=== PATIENT | female | born 1990 | race Caucasian/White ===

== ENCOUNTER 2017-01-17 14:28 | Emergency (ER) | payer SELFPAY ==
[2017-01-17 14:37] VITALS: BP 133/82
[2017-01-17 16:02] LABS: Basophils % (Auto) 0.2 % (0.0-1.8); Eosinophils % (Auto) 1.1 % (0.0-4.3); Hematocrit 39.3 % (30.3-42.9); Hemoglobin 13.4 gm/dl (10.1-14.3); Mean Corpuscular HGB Conc 34 % (30-34); Mean Corpuscular Hemoglobin 27 pg (28-32); Mean Corpuscular Volume 79 fl (79-97); Platelet Count 163 K/mm3 (140-440); Red Blood Count 4.96 M/mm3 (3.65-5.03); Red Cell Distribution Width 15.8 % (13.2-15.2); White Blood Count 5.8 K/mm3 (4.5-11.0)
[2017-01-17 17:00] LABS: Bacteria,Urine 1+ /HPF (Negative); Bilirubin,Urine NEG (Negative); Blood,Urine LG (Negative); Ketones,Urine NEG (Negative); Leukocyte Esterase,Urine LG (Negative); Mucus,Urine FEW /HPF; Nitrite,Urine POS (Negative); Protein,Urine <15 mg/dL mg/dL (Negative); Urobilinogen,Urine < 2.0 mg/dL (<2.0)
--- NOTE | 2017-01-17 22:16 | Emergency Department Report ---
HPI - General Chief Complaint: Vaginal Bleeding Time Seen by Provider: 01/17/17 21:52 - HPI HPI: Room 36 The patient is a 26-year-old female presenting with a chief complaint of hepatitis C, HIV exposure, dyspareunia and vaginal bleeding and concern for movement of IUD. 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 The patient states she was instructed to receive hepatitis C and HIV testing each month for 1 year. The patient states her tests have been negative through October 2016. The patient states she has since lost her medical insurance and has come to the emergency department for these tests to be performed. The patient states she also mention in passing and she began having vaginal bleeding since giving in August 2016 and she is also concerned that her IUD has moved. Location: [See above] Duration: [See above] Quality: [See above] Severity: [See above] Modifying factors: [see above] Context: [see above] Mode of transportation: [not driving] ED Past Medical Hx - Past Medical History Hx Sickle Cell Disease: Yes (sickle cell trait) - Surgical History Past Surgical History?: No - Family History Family history: no significant - Social History Smoking Status: Never Smoker Substance Use Type: None - Medications Home Medications: Home Medications Medication Instructions Recorded Confirmed Last Taken Type Ibuprofen [Motrin 600 MG tab] 600 mg PO Q8H PRN #30 tablet 09/07/16 Unknown Rx Multivitamin with Iron 1 each PO DAILY #30 tablet 09/07/16 Unknown Rx [Multivitamins with Iron] oxyCODONE /ACETAMINOPHEN [Percocet 1 tab PO Q6HR PRN #30 tablet 09/07/16 Unknown Rx 5/325] ED Review of Systems ROS: Stated complaint: VAGINAL PAIN, HIV TESTING NEEDLE STICK Other details as noted in HPI Comment: All other systems reviewed and negative Constitutional: denies: chills, fever Eyes: denies: eye pain, eye discharge, vision change ENT: denies: ear pain, throat pain Respiratory: denies: cough, shortness of breath, wheezing Cardiovascular: denies: chest pain, palpitations Endocrine: no symptoms reported Gastrointestinal: denies: abdominal pain, nausea, diarrhea Genitourinary: abnormal menses, dyspareunia Musculoskeletal: denies: back pain, joint swelling, arthralgia Skin: denies: rash, lesions Neurological: denies: headache, weakness, paresthesias Psychiatric: denies: anxiety, depression Hematological/Lymphatic: denies: easy bleeding, easy bruising Physical Exam - Physical Exam Vital Signs: Vital Signs 01/17/17 14:34 Temperature 99.2 F Pulse Rate 88 Respiratory 16 Rate Blood Pressure 133/82 O2 Sat by Pulse 99 Oximetry Physical Exam: GENERAL: The patient is well-developed well-nourished female sitting on chair not appearing to be in acute distress The rest of physical exam has been deferred as patient no longer wishes to be evaluated for her other symptoms outside of HIV/hepatitis C testing ED Course Vital Signs 01/17/17 14:34 Temperature 99.2 F Pulse Rate 88 Respiratory 16 Rate Blood Pressure 133/82 O2 Sat by Pulse 99 Oximetry ED Medical Decision Making - Lab Data Result diagrams: 01/17/17 15:20 Laboratory Tests 01/17/17 01/17/17 01/17/17 15:20 15:20 15:22 WBC 5.8 RBC 4.96 Hgb 13.4 Hct 39.3 MCV 79 MCH 27 L MCHC 34 RDW 15.8 H Plt Count 163 Lymph % (Auto) 39.3 H [place] % (Auto) 6.8 Eos % (Auto) 1.1 Baso % (Auto) 0.2 Lymph # 2.3 [place] # 0.4 Eos # 0.1 Baso # 0.0 Seg Neutrophils % 52.6 Seg Neutrophils # 3.0 HCG, Quant < 2 Urine Color Urine Turbidity Urine pH Ur Specific [place] Urine Protein Urine Glucose (UA) Urine Ketones Urine Blood Urine Nitrite Urine Bilirubin Urine Urobilinogen Ur Leukocyte Esterase Urine WBC (Auto) Urine RBC (Auto) U Epithel Cells (Auto) Urine Bacteria (Auto) Urine Mucus Blood Type O POSITIVE Antibody Screen Negative 01/17/17 16:17 WBC RBC Hgb Hct MCV MCH MCHC RDW Plt Count Lymph % (Auto) [place] % (Auto) Eos % (Auto) Baso % (Auto) Lymph # [place] # Eos # Baso # Seg Neutrophils % Seg Neutrophils # HCG, Quant Urine Color Yellow Urine Turbidity Clear Urine pH 6.0 Ur Specific [place] 1.017 Urine Protein <15 mg/dl Urine Glucose (UA) Neg Urine Ketones Neg Urine Blood Lg Urine Nitrite Pos Urine Bilirubin Neg Urine Urobilinogen < 2.0 Ur Leukocyte Esterase Lg Urine WBC (Auto) 45.0 H Urine RBC (Auto) 5.0 U Epithel Cells (Auto) 10.0 Urine Bacteria (Auto) 1+ Urine Mucus Few Blood Type Antibody Screen - Medical Decision Making I discussed with the patient at length via language line staff respiratory therapist that she will not be tested for hepatitis C or HIV in the emergency department. I explained to the patient that she will be given a referral to the health Department who has appropriate post evaluation counseling in place. The patient was asked that she would like to be evaluated for her vaginal bleeding, dyspareunia and concern for movement of the IUD as ultrasound is at the door and ready to take her to the ultrasound lab. Patient verbalized understanding and states that she does not wish to be evaluated for the other complaints and only HIV and hepatitis C. Patient subsequently agrees to cancel the pelvic ultrasound has been ordered today for further evaluation Critical care attestation.: If time is entered above; I have spent that time in minutes in the direct care of this critically ill patient, excluding procedure time. ED Disposition Clinical Impression: Vaginal bleeding, Dyspareunia Disposition: DC- TO HOME OR SELFCARE Is pt being admited?: No Does the pt Need Aspirin: No Condition: Stable Instructions: Dysfunctional Uterine Bleeding (ED) Additional Instructions: Return to the emergency department immediately should you develop worsening symptoms, fever, inability to tolerate food or liquid or any other concerns. Referrals: [facility] [Outside] - 3-5 Days [facility] [Provider Group] - 3-5 Days [facility] [Outside] - [facility] (Please go to the health department for further testing of HIV and hepatitis C) Time of Disposition: 22:18
== END 2017-01-17 22:28 | disposition home or self-care (01) ==
LOC: ED 14:28
DX: N93.9 Abnormal uterine and vaginal bleeding, unspecified (principal); N94.10 Unspecified dyspareunia
CPT/HCPCS: 36415; 81001; 84702; 85025; 86850; 86900; 86901; 99283